=== PATIENT | female | born 1960 | race Caucasian/White ===

== ENCOUNTER 2016-07-09 15:59 | Inpatient (IN) | payer BC ==
--- NOTE | ~2016-07-09 | HP ---
History And Physical [id number] [place]. [address] NAME: ENRRIQUE INIGUEZ : 56 STATUS : ADM IN [facility]#: [id number] AGE: 55 ADM/REG DATE : 07/09/16 MR#: [id number] REPORT SERV DATE: 07/09/16 DICTATED BY: DELVIN HARDWICK DATE: 07/09/16 REPORT STATUS : Draft TRANSCRIBED BY: MODL DATE: 07/09/16 DATE OF ADMISSION: 07/09/2016 REFERRING REASON: Chest pain and elevated troponin. 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 She has a long history of hypertension, hyperlipidemia, and now pre diabetes. She has been on ROXANNE inhibitor and some metformin. She has not had any chest pain, until earlier today, around 11 a.m., she developed at rest severe substernal chest pressure, which lasted on and off for a couple of hours. She also has some mild nausea, but no shortness of breath. There was no significant radiation. It was substernal. She never had similar symptoms before. She decided to go to emergency room. She was found to have a nonspecific ST-segment changes and elevated troponin 0.25. Chest x-ray has not revealed any acute pathology. The patient is now hemodynamically stable without any chest pain and lying flat in the bed. She denied any similar symptoms before. She is otherwise physically active. She has a remote history of smoking. REVIEW OF SYSTEMS: The rest of review of systems is negative. PAST MEDICAL HISTORY: 1. Hypertension, on treatment. 2. Hyperlipidemia, followed by PCP. 3. Reported prediabetes, now on metformin. 4. Depression. 5. Gastroesophageal reflux disease. ALLERGIES: NO KNOWN DRUG ALLERGIES. SOCIAL HISTORY: The patient is a nurse. She is . She works as a assistant case manager. She does not exercise regularly. She quit smoking in 2010, smoked about 15 years. Denies drinking alcohol or using street drugs. FAMILY HISTORY: Negative for sudden cardiac deaths or premature coronary artery disease in the family. HOME MEDICATIONS: Wellbutrin 300 mg once a day; Victoza injection, last one on 07/08/2016; lisinopril 20 mg once a day; metaxalone 800 mg three times a day as needed; metformin 500 mg at bedtime; omeprazole 20 mg once a day; Topamax 50 mg twice a day; trazodone 200 mg once a day. PHYSICAL EXAMINATION: GENERAL: No acute distress. VITAL SIGNS: Blood pressure 141/71, heart rate 91 and regular. HEENT: Pupils reactive to light and accommodation. Moist mucosa membrane. History And Physical [address] [address] NAME: ENRRIQUE INIGUEZ : 56 STATUS : ADM IN [facility]#: [id number] AGE: 55 ADM/REG DATE : 07/09/16 MR#: [id number] REPORT SERV DATE: 07/09/16 DICTATED BY: DELVIN HARDWICK DATE: 07/09/16 REPORT STATUS : Draft TRANSCRIBED BY: ISAAC DATE: 07/09/16 NECK: No JVD. Normal carotid upstroke. No carotid bruits. LUNGS: Clear to auscultation bilaterally. Normal inspiratory efforts. COR: Normal S1, S2. No S3 or S4. No significant rub or murmurs. ABD: Soft, nontender, nondistended. EXT: No edema. Pedal pulses strong and equal bilaterally. SKIN: Warm with normal turgor. MS: No kyphosis. NEURO/PSY: Alert and oriented. Nonfocal. DATA: CBC and electrolyte within normal limits. Troponin is 0.25. Chest x-ray, no acute pathology per Dr. Hameed. Electrocardiogram revealed normal sinus rhythm 86 beats per minute with poor R-wave progression in anterior leads, cannot exclude anterior ND with mild 0.[address] depression in anterior leads and also in lead I and II, but no ST-elevation. No previous electrocardiogram available for comparison. ASSESSMENT AND PLAN: Prolonged episode of resting chest pain with elevated troponin, likely non-ST elevation myocardial infarction. The patient has some EKG changes and with her symptoms very likely she is undergoing acute coronary syndrome. She received aspirin in the emergency room. We will continue with intravenous heparin. Start her on a statin and beta blockers and continue ROXANNE inhibitors, but we will continue to follow closely cardiac enzymes. We will plan for coronary arteriogram on Monday earlier as needed. We will also plan for echocardiogram on Monday. I will hold the metformin and start on sliding scale of insulin. The code status is full. OJL/MODL Delvin Hardwick M.D. / [id number] CC: Delvin Hardwick M.D.
[2016-07-09 14:58] LABS: BASOPHILS 0.1 %; BASOPHILS ABSOLUTE 0.01 10/3/uL (0.0-0.16); EOSINOPHILS ABSOLUTE 0.14 10/3/uL (0.0-0.53); ER CBC TAT 0 Hrs 07 Mins; HEMATOCRIT 42.9 % (36.0-48.0); HEMOGLOBIN 15.2 g/dL (12.0-16.0); IMMATURE GRANULOCYTES 0.1 %; IMMATURE GRANULOCYTES ABSOLUTE 0.01 10/3/uL (0.0-0.11); LYMPHOCYTES 20.7 %; LYMPHOCYTES ABSOLUTE 1.44 10/3/uL (0.67-4.30); MEAN CORPUSCULAR HEMOGLOB 33.5 pg (26.0-34.0); MONOCYTES 6.2 %; MONOCYTES ABSOLUTE 0.43 10/3/uL (0.21-1.20); NEUTROPHILS 70.9 %; NEUTROPHILS ABSOLUTE 4.91 10/3/uL (2.02-8.40); PLATELET COUNT 283 10/3/uL (150-400); RBC DISTRIBUTION WIDTH 12.6 % (12.0-16.0); RED CELL COUNT 4.54 10/6/uL (4.0-5.6); WHITE BLOOD CELLS 6.9 10/3/uL (4.5-10.5)
[2016-07-09 14:59] LABS: MANUAL DIFF NO %; MEAN CORPUS HGB CONC 35.4 g/dL (32.0-36.0); MEAN CORPUSCULAR VOLUME 94.5 fL (80-100)
[2016-07-09 15:06] LABS: INTERNATIONAL NORMAL RATI 1.1 UNITS (-); PARTIAL THROMBO TIME 27.3 SEC (22.5-37.2); PROTIME (NOT ORD) 13.7 SEC (12.0-14.5)
[2016-07-09 15:11] LABS: BUN (BLOOD UREA NITROGEN) 12 MG/DL (6-23); CALCIUM, SERUM 8.5 MG/DL (8.5-10.4); CHLORIDE, SERUM 106 MMOL/L (96-112); CO2 (CARBON DIOXIDE) 25 MMOL/L (24-34); CREATININE 0.84 MG/DL (0.55-1.02); GFR AFRICAN AMERICAN 89 ML/MIN (>=60); GFR NON AFRICAN AMERICAN 77 ML/MIN (>=60); GLUCOSE, SERUM 93 MG/DL (60-99); SODIUM, SERUM 140 MMOL/L (135-148)
[2016-07-09 15:12] LABS: CHEST PAIN PROFILE TAT 0 Hrs 21 Mins; TROPONIN I 0.25 NG/ML (<0.05)
[~2016-07-09 15:59] MED LIST: FORTAMET500 MG PO; PRILO PO; PRIN20 PO; SKELAXIN8 PO; TOPAMAX50 MG PO; TRAZ100 PO; VICTOZA18 MG/3 ML SC; WELLXL300 PO
[2016-07-09 19:54] LABS: BASOPHILS 0.3 %; BASOPHILS ABSOLUTE 0.02 10/3/uL (0.0-0.16); EOSINOPHILS 2.1 %; EOSINOPHILS ABSOLUTE 0.14 10/3/uL (0.0-0.53); HEMATOCRIT 38.9 % (36.0-48.0); HEMOGLOBIN 13.4 g/dL (12.0-16.0); LYMPHOCYTES 37.7 %; MEAN CORPUS HGB CONC 34.4 g/dL (32.0-36.0); MEAN CORPUSCULAR HEMOGLOB 32.6 pg (26.0-34.0); MEAN CORPUSCULAR VOLUME 94.6 fL (80-100); MEAN PLATELET VOLUME 9.3 fL (9.2-13.0); MONOCYTES 8.9 %; MONOCYTES ABSOLUTE 0.59 10/3/uL (0.21-1.20); NEUTROPHILS ABSOLUTE 3.38 10/3/uL (2.02-8.40); PLATELET COUNT 281 10/3/uL (150-400); RBC DISTRIBUTION WIDTH 12.6 % (12.0-16.0); RED CELL COUNT 4.11 10/6/uL (4.0-5.6); WHITE BLOOD CELLS 6.6 10/3/uL (4.5-10.5)
[2016-07-09 19:57] LABS: MANUAL DIFF NO %
[2016-07-09 20:04] LABS: INTERNATIONAL NORMAL RATI 1.2 UNITS (-); PROTIME (NOT ORD) 14.9 SEC (12.0-14.5)
[2016-07-09 20:08] LABS: BUN (BLOOD UREA NITROGEN) 14 MG/DL (6-23); CALCIUM, SERUM 8.6 MG/DL (8.5-10.4); CHLORIDE, SERUM 109 MMOL/L (96-112); CO2 (CARBON DIOXIDE) 25 MMOL/L (24-34); CREATININE 0.78 MG/DL (0.55-1.02); GFR AFRICAN AMERICAN 98 ML/MIN (>=60); GFR NON AFRICAN AMERICAN 84 ML/MIN (>=60); GLUCOSE, SERUM 83 MG/DL (60-99); PARTIAL THROMBO TIME 138.7 SEC (22.5-37.2); POTASSIUM, SERUM 3.6 MMOL/L (3.5-5.3); SODIUM, SERUM 140 MMOL/L (135-148)
[2016-07-10 01:28] LABS: BUN (BLOOD UREA NITROGEN) 16 MG/DL (6-23); CALCIUM, SERUM 8.6 MG/DL (8.5-10.4); CHLORIDE, SERUM 107 MMOL/L (96-112); CHOL/HDL RATIO(NOT ORDER) 2.7 (0-5); CHOLESTEROL 207 MG/DL (< 200); CO2 (CARBON DIOXIDE) 27 MMOL/L (24-34); GFR AFRICAN AMERICAN 95 ML/MIN (>=60); GFR NON AFRICAN AMERICAN 82 ML/MIN (>=60); GLUCOSE, SERUM 100 MG/DL (60-99); HDL CHOLESTEROL 77 MG/DL (> 49); LDL CHOLESTEROL 103 MG/DL (< 130); NON-HDL CHOLESTEROL 130 MG/DL (< 160); POTASSIUM, SERUM 3.3 MMOL/L (3.5-5.3); SGPT(ALT) 20 U/L (5-65); SODIUM, SERUM 139 MMOL/L (135-148); TRIGLYCERIDE 136 MG/DL (< 150)
[2016-07-10 02:08] LABS: BASOPHILS 0.3 %; BASOPHILS ABSOLUTE 0.02 10/3/uL (0.0-0.16); EOSINOPHILS 3.6 %; EOSINOPHILS ABSOLUTE 0.21 10/3/uL (0.0-0.53); HEMATOCRIT 36.9 % (36.0-48.0); LYMPHOCYTES 40.8 %; LYMPHOCYTES ABSOLUTE 2.41 10/3/uL (0.67-4.30); MANUAL DIFF NO %; MEAN CORPUS HGB CONC 35.2 g/dL (32.0-36.0); MEAN CORPUSCULAR HEMOGLOB 33.2 pg (26.0-34.0); MEAN CORPUSCULAR VOLUME 94.1 fL (80-100); MEAN PLATELET VOLUME 9.4 fL (9.2-13.0); MONOCYTES 8.8 %; MONOCYTES ABSOLUTE 0.52 10/3/uL (0.21-1.20); NEUTROPHILS 46.5 %; NEUTROPHILS ABSOLUTE 2.74 10/3/uL (2.02-8.40); PLATELET COUNT 273 10/3/uL (150-400); RBC DISTRIBUTION WIDTH 12.7 % (12.0-16.0); RED CELL COUNT 3.92 10/6/uL (4.0-5.6); WHITE BLOOD CELLS 5.9 10/3/uL (4.5-10.5)
[2016-07-10 07:30] LABS: BUN (BLOOD UREA NITROGEN) 13 MG/DL (6-23); CALCIUM, SERUM 8.8 MG/DL (8.5-10.4); CHLORIDE, SERUM 109 MMOL/L (96-112); CO2 (CARBON DIOXIDE) 27 MMOL/L (24-34); CREATININE 0.86 MG/DL (0.55-1.02); GFR AFRICAN AMERICAN 87 ML/MIN (>=60); GFR NON AFRICAN AMERICAN 75 ML/MIN (>=60); GLUCOSE, SERUM 94 MG/DL (60-99); SODIUM, SERUM 140 MMOL/L (135-148)
[2016-07-10 07:31] LABS: POTASSIUM, SERUM 4.2 MMOL/L (3.5-5.3); TROPONIN I 0.35 NG/ML (<0.05)
[2016-07-10 14:03] LABS: ASCORBIC ACID (UR NOT ORDER) NEG (NEG); BILIRUBIN, URINE NEGATIVE (NEG); KETONE, URINE NEGATIVE (NEG); LEUKOCYTE ESTERASE(NOT OR SMALL (NEG); WBC (NOT ORDERED) (RFLEX) 2 (0-5)
[2016-07-11 04:59] LABS: BASOPHILS 0.2 %; BASOPHILS ABSOLUTE 0.01 10/3/uL (0.0-0.16); EOSINOPHILS ABSOLUTE 0.24 10/3/uL (0.0-0.53); HEMOGLOBIN 14.3 g/dL (12.0-16.0); IMMATURE GRANULOCYTES 0.2 %; IMMATURE GRANULOCYTES ABSOLUTE 0.01 10/3/uL (0.0-0.11); LYMPHOCYTES 42.6 %; LYMPHOCYTES ABSOLUTE 2.55 10/3/uL (0.67-4.30); MEAN CORPUS HGB CONC 34.4 g/dL (32.0-36.0); MEAN CORPUSCULAR HEMOGLOB 32.9 pg (26.0-34.0); MEAN CORPUSCULAR VOLUME 95.6 fL (80-100); MEAN PLATELET VOLUME 9.3 fL (9.2-13.0); MONOCYTES ABSOLUTE 0.54 10/3/uL (0.21-1.20); NEUTROPHILS ABSOLUTE 2.64 10/3/uL (2.02-8.40); PLATELET COUNT 259 10/3/uL (150-400); RBC DISTRIBUTION WIDTH 12.5 % (12.0-16.0); RED CELL COUNT 4.35 10/6/uL (4.0-5.6)
[2016-07-11 05:00] LABS: HEMATOCRIT 41.6 % (36.0-48.0); MANUAL DIFF NO %
[2016-07-11 05:13] LABS: BUN (BLOOD UREA NITROGEN) 13 MG/DL (6-23); CALCIUM, SERUM 8.8 MG/DL (8.5-10.4); CHLORIDE, SERUM 110 MMOL/L (96-112); CO2 (CARBON DIOXIDE) 26 MMOL/L (24-34); CREATININE 0.91 MG/DL (0.55-1.02); GFR AFRICAN AMERICAN 81 ML/MIN (>=60); GFR NON AFRICAN AMERICAN 70 ML/MIN (>=60); GLUCOSE, SERUM 97 MG/DL (60-99); POTASSIUM, SERUM 3.7 MMOL/L (3.5-5.3); SODIUM, SERUM 142 MMOL/L (135-148)
[2016-07-11 05:15] LABS: TROPONIN I 0.12 NG/ML (<0.05)
[2016-07-11] MEDS ORDERED: LIPITOR40 PO (16:22)
[2016-07-11] MEDS ORDERED: ASAB PO (16:22)
[2016-07-11] MEDS ORDERED: PRIN10 PO (16:24)
== END 2016-07-11 19:09 | disposition home or self-care (01) | DRG 282 ==
LOC: ER 15:59 → 5NO 16:23 → 6NO 16:34
PROVIDERS: Emergency Medicine; Internal Medicine Cardiovascular Disease
PROC: 4A023N7 Measurement of Cardiac Sampling and Pressure, Left Heart, Percutaneous Approach (ICD-10-PCS; principal; 2016-07-11)
PROC: B2111ZZ Fluoroscopy of Multiple Coronary Arteries using Low Osmolar Contrast (ICD-10-PCS; 2016-07-11)
PROC: B2151ZZ Fluoroscopy of Left Heart using Low Osmolar Contrast (ICD-10-PCS; 2016-07-11)
DX: I21.4 Non-ST elevation (NSTEMI) myocardial infarction (principal); I95.9 Hypotension, unspecified; I71.2 Thoracic aortic aneurysm, without rupture; R73.03 Prediabetes; K21.9 Gastro-esophageal reflux disease without esophagitis; I10 Essential (primary) hypertension; F32.9 Major depressive disorder, single episode, unspecified; E78.2 Mixed hyperlipidemia; Z87.891 Personal history of nicotine dependence; Z79.84 Long term (current) use of oral hypoglycemic drugs
CPT/HCPCS: 71020; 80048; 80061; 81001; 82962; 83735; 84460; 84484; 84702; 85025; 85347; 85379; 85610; 85730; 87086; 93005; 93306; 93458; 99152; 99153; 99285; A9270-GY; C1769; C1887; C1894; J2250; J3010; Q9967